=== PATIENT | male | born 1960 | race Caucasian/White ===

== ENCOUNTER 2017-10-17 11:02 | Emergency (ER) | payer OTHER ==
[~2017-10-17] VITALS: Ht 177.8 cm; Wt 118.1 kg
[2017-10-17] MEDS ORDERED: IV NORMAL SALINE 1,000ML 1,000 ML IV ONE (11:15)
[2017-10-17 11:18] VITALS: BP 158/98
--- NOTE | 2017-10-17 11:44 | PHYS DOC ---
Past History Past Medical History: Arthritis Past Surgical History: No Surgical History Alcohol Use: None Drug Use: None Adult General Chief Complaint Chief Complaint: SWALLOWED FORIEGN BODY HPI HPI 57-year-old male presenting to the emergency department after chewing brisket in swallowing however he does not feel the food got down to his belly. He feels that it stuck in his esophagus. He reports having a spell of coughing and difficulty speaking which has improved. Onset today. Location GI tract. Duration constant. No alleviating or exacerbating factors. Review of systems is negative for shortness of breath headache abdominal pain nausea vomiting. All other review of systems is negative unless otherwise noted in history of present illness. ED course: 57-year-old male presenting to the emergency department today with initially a food bolus stuck in his esophagus. Upon arrival the patient was resting comfortably in the examination room. I ordered for the patient to get 1 L of normal saline along with IV glucagon however the patient refused. He desired to try to drink some water. After drinking some water the patient states that he is completely asymptomatic feeling much better and has no other complaints. Triage vital signs show the patient to be afebrile with a normal heart rate saturating well on room air. On second evaluation the patient continues to be completely asymptomatic and is desiring to be discharged. The patient was then discharged home in stable condition to follow up with their primary care physician over the next 2-3 days. They were to return if their symptoms worsened or if they were concerned for any reason. [id number] discharge instructions and return precautions were given. Patient's questions were answered to their satisfaction. Patient is comfortable plan. Review of Systems Review of Systems SEE ABOVE. Current Medications Current Medications Current Medications Medications (Trade) Dose Ordered Sig/Shruthi Start Time Stop Time Status Last Admin Dose Admin Glucagon (Glucagen Kit) 1 mg 1X ONCE 10/17/17 11:15 10/17/17 11:16 UNV Sodium Chloride 1,000 ml @ 1,000 mls/hr 1X ONCE 10/17/17 11:15 10/17/17 12:14 UNV Allergies Allergies Allergies Coded Allergies Type Severity Reaction Last Updated Verified No Known Drug Allergies 10/17/17 No Physical Exam Physical Exam SEE ABOVE Constitutional: Well developed, well nourished, no acute distress, non-toxic appearance. HENT: Normocephalic, atraumatic, bilateral external ears normal, oropharynx moist, no oral exudates, nose normal. [] Eyes: PERRLA, EOMI, conjunctiva normal, no discharge. [] Neck: Normal range of motion, no tenderness, supple, no stridor. Cardiovascular:Heart rate regular rhythm, no murmur [] Lungs & Thorax: Bilateral breath sounds clear to auscultation Abdomen: Bowel sounds normal, soft, no tenderness, no masses, no pulsatile masses. Skin: Warm, dry, no erythema, no rash. [] Back: No tenderness, no CVA tenderness. Extremities: No tenderness, no cyanosis, no clubbing, ROM intact, no edema. [] Neurologic: Alert and oriented X 3, normal motor function, normal sensory function, no focal deficits noted. [] Psychologic: Affect normal, judgement normal, mood normal. [] Current Patient Data Vital Signs Vital Signs Date Time Temp Pulse Resp B/P (MAP) Pulse Ox O2 Delivery O2 Flow Rate FiO2 10/17/17 11:18 98.1 92 20 98 Room Air EKG EKG [] Radiology/Procedures Radiology/Procedures [] Course & Med Decision Making Course & Med Decision Making Pertinent Labs and Imaging studies reviewed. (See chart for details) [] Dragon Disclaimer Dragon Disclaimer This electronic medical record was generated, in whole or in part, using a voice recognition dictation system. Departure Departure: Impression: Primary Impression: Esophageal obstruction Disposition: 01 HOME, SELF-CARE Condition: STABLE Additional Instructions: Thank you for allowing us to participate in your care today. I recommend that you follow up with a GI doctor within the next 7-10 days. Follow-up with your primary care physician in the next 2-3 days. Followup with your primary care physician in 3 days if your symptoms do not improve. Call your Primary Doctor tomorrow and inform them of your visit today. If you do not have a primary care provider you can ask for a list of our primary care providers. Return to the emergency department you have any new or concerning findings. This should be evaluated by the primary care physician and any necessary consulting services for continued management within a few days after discharge. Return to emergency room if you have any new or concerning symptoms including but not limited to fever, chills, nausea, vomiting, intractable pain, any new rashes, chest pain, shortness of air, uncontrolled bleeding, difficulty breathing, and/or vision loss. You may have been prescribed medication that can change in your level of thinking and ability to operate machinery. These medications include hydrocodone and Ativan. Also, Benadryl has been known to do this as well. Be sure to check with your pharmacist and ask if the medications you've prescribed can affect your level of consciousness. I recommend not operating heavy machinery or driving while on medication such as these. CHAYA ANDERSON MD Oct 17, 2017 11:44
[2017-10-17] MEDS ORDERED: GLUCAGON,HUMAN RECOMBINANT 1 MG KIT. IV ONE (11:45)
== END 2017-10-17 11:49 | disposition home or self-care (01) ==
LOC: ER 11:02
DX: K22.2 Esophageal obstruction (principal); M19.90 Unspecified osteoarthritis, unspecified site
CPT/HCPCS: 99281; 99283

== ENCOUNTER → 2021-12-21 | Outpatient (CLI) | payer OTHER ==
--- NOTE | 2021-12-21 10:02 | RAD ---
EXAM: Right knee, 2 views. HISTORY: Pain. COMPARISON: None. FINDINGS: 2 views of the right knee are obtained. There is moderate to severe marginal spurring. Ther e is medial and lateral compartment chondrocalcinosis. There are joint loose bodies. There is trace j oint fluid. There is enthesopathy along the superior patella. IMPRESSION: Moderate to severe tricompartmental osteoarthritis of the right knee with joint loose bod ies and chondrocalcinosis. Electronically signed by: Marisa Juarez MD (12/21/2021 9:59 AM) [id number]
--- NOTE | 2021-12-21 10:03 | RAD ---
EXAM: Lumbar spine, 3 views. HISTORY: Pain. COMPARISON: None. FINDINGS: 3 views of the lumbar spine are obtained. There are hypoplastic T12 ribs and 5 nonrib-beari ng lumbar segments. There is multilevel degenerative endplate remodeling. There are multiple endplate Schmorl's nodes and chronic endplate depressions. There is advanced facet arthropathy predominantly at the lower lumbar levels. There is no acute fracture. There is severe right hip osteoarthritis with bony remodeling, not formally assessed on this exam. There is an enteric surgical anastomosis overly ing the right lower quadrant. IMPRESSION: 1. Multilevel degenerative change throughout the lumbar spine, primarily the lower lumbar levels. 2. Multiple endplate Schmorl's nodes and chronic endplate depressions at the lumbar levels. 3. Severe right hip osteoarthritis. Electronically signed by: Marisa Juarez MD (12/21/2021 10:01 AM) [id number]
== END ==
LOC: RAD 09:15
PROVIDERS: ATTEND Anesthesiology Pain Medicine
DX: M47.816 Spondylosis without myelopathy or radiculopathy, lumbar region (principal); M51.46 Schmorl's nodes, lumbar region; M17.11 Unilateral primary osteoarthritis, right knee; M11.261 Other chondrocalcinosis, right knee
CPT/HCPCS: 72100; 73560